=== PATIENT | male | born 1950 | race Hispanic/Latino ===

== ENCOUNTER → 2017-08-11 | Outpatient (CLI) | payer OTHER ==
[~2017-08-11] VITALS: Ht 170.2 cm; Wt 95.3 kg
[~2017-08-11] MED LIST: AMLO5TAB2 PO; ASPI-555 PO; ATOR20TA65 PO; ERGO2000 PO; GLIP1TAB5 PO; INSU100I13 SQ; INSU100I3 SQ; INSU100V3 SQ; INSU200I4 SQ; LORA-705 PO; METF10004 PO; METO50 PO; PIOG30TA70 PO; REGADENOSON 0.4 MG/5 ML PF SYG IVP SCH; VALS160T29 PO
== END | disposition home or self-care (01) ==
LOC: SHCH 09:16
PROVIDERS: ATTEND Internal Medicine Cardiovascular Disease
DX: I20.9 Angina pectoris, unspecified (principal)
CPT/HCPCS: 78452; 93017; 96374; A9500 ×2; J2785

== ENCOUNTER 2017-09-03 08:56 | Day surgery (SDC) | payer OTHER ==
[2017-09-01 14:43] VITALS: BP 139/61
[2017-09-01 15:11] LABS: CREATININE 1.1 mg/dL (0.5-1.5); POTASSIUM 4.3 mmol/L (3.5-5.1)
[2017-09-01 15:13] LABS: BASOPHILS % (AUTO) 0.6 % (0.0-5.0); HEMATOCRIT 38.5 % (42-54); LYMPHOCYTES % (AUTO) 31.8 % (21.0-51.0); MEAN CORPUSCULAR HEMOGLOBIN 31.5 pg (27.0-33.0); MEAN CORPUSCULAR HGB CONC 34.9 g/dL (32.0-36.0); MEAN CORPUSCULAR VOLUME 90.3 fL (79-99); MONOCYTES % (AUTO) 7.5 % (3.0-13.0); NEUTROPHILS % (AUTO) 57.1 % (40.0-77.0); PLATELET COUNT (AUTO) 209 K/uL (130-400); RED BLOOD CELL COUNT(AUTO) 4.27 MIL/uL (4.50-6.20); RED CELL DISTRIBUTION WIDTH 14.1 % (11.0-15.5); WHITE BLOOD COUNT (AUTO) 6.2 K/uL (4.8-10.8)
[2017-09-01 15:23] LABS: INR 0.98 (0.85-1.15); PARTIAL THROMBOPLASTIN TIME 25.5 SEC (26.3-35.5); PROTHROMBIN TIME 10.3 SEC (9.6-11.6)
[2017-09-01 15:41] LABS: APPEARANCE,URINE Clear (CLEAR); BILIRUBIN,URINE Negative (NEGATIVE); COLOR,URINE Yellow (YELLOW); GLUCOSE, URINE (UA) Negative (NEGATIVE); KETONES,URINE Negative (NEGATIVE); LEUKOCYTE ESTERASE ,URINE Negative (NEGATIVE); NITRATE,URINE Negative (NEGATIVE); OCCULT BLOOD,URINE Negative (NEGATIVE); PH,URINE 5.5 (5.0-8.0); PROTEIN,URINE Negative (NEGATIVE)
[~2017-09-03] VITALS: Ht 170.2 cm; Wt 97.5 kg
[2017-09-03] VITALS (19 sets, daily range): BP systolic 110–136; BP diastolic 49–76
[~2017-09-03 08:56] MED LIST changes: -GLIP1TAB5 PO; -INSU100I13 SQ; -INSU100V3 SQ; -LORA-705 PO; +PIOG30TA26 PO; -PIOG30TA70 PO; -REGADENOSON 0.4 MG/5 ML PF SYG IVP SCH; +SODIUM CHLORIDE 0.9% 1000ML 1,000 ML IV SCH; +VALS160T28 PO; -VALS160T29 PO
[2017-09-03] MEDS ORDERED: IOHEXOL 350 MG/ML 100ML INFUS..BTL IV ONE ×2 (11:29→12:11)
[2017-09-03] MEDS ORDERED: LIDOCAINE HCL-MPF 2% 5ML VIAL ONE (11:29)
[2017-09-03] MEDS ORDERED: IOHEXOL-350 50ML VIAL IV ONE (11:29)
[2017-09-03] MEDS ORDERED: HEPARIN SODIUM 1000UNIT/ML 10ML VIAL ONE (12:10)
[2017-09-03] MEDS ORDERED: SODIUM CHLORIDE 0.9% 1000ML 1,000 ML IV SCH (12:56)
[2017-09-03] MEDS ORDERED: DEXTROSE 50%-WATER 50 ML DISP.SYRIN IV PRN (13:00)
[2017-09-03] MEDS ORDERED: GLUCAGON 1MG KIT 1 MG ML IM PRN (13:00)
[2017-09-03] MEDS: INSULIN HUMULIN R 100 UNIT/ML 3ML SQ SCH ×2 (16:30→21:00)
[2017-09-03] MEDS ORDERED: ACETAMINOPHEN EXTRA STRENGTH 500 MG TABLET ONE (17:07)
== END 2017-09-03 23:30 | disposition home or self-care (01) ==
LOC: DAH 08:56 → 2AH 19:15 → DAH 23:30
PROVIDERS: ATTEND Internal Medicine Cardiovascular Disease
DX: I25.708 Atherosclerosis of coronary artery bypass graft(s), unspecified, with other forms of angina pectoris (principal); Z95.1 Presence of aortocoronary bypass graft; Z98.890 Other specified postprocedural states; E78.5 Hyperlipidemia, unspecified; E11.9 Type 2 diabetes mellitus without complications; I10 Essential (primary) hypertension; J30.9 Allergic rhinitis, unspecified; Z79.899 Other long term (current) drug therapy; Z79.84 Long term (current) use of oral hypoglycemic drugs; Z79.01 Long term (current) use of anticoagulants
CPT/HCPCS: 36415; 71045; 80048; 81003; 82948 ×5; 85025; 85610; 85730; 93005; 93459; A4606; C1769; C1894; J1644 ×2; J1815; J3490; J7070; Q9965 ×2; Q9967 ×3

== ENCOUNTER → 2020-09-20 | Outpatient (CLI) | payer MEDICARE ==
[~2020-09-20] MED LIST changes: +AMLO-257 PO; -AMLO5TAB2 PO; -ASPI-555 PO; +ASPI-556 PO; +METF-446 PO; -METF10004 PO; -PIOG30TA26 PO; +PIOG30TA70 PO; -SODIUM CHLORIDE 0.9% 1000ML 1,000 ML IV SCH; -VALS160T28 PO; +VALS160T29 PO
== END | disposition home or self-care (01) ==
LOC: SHCH 11:24
PROVIDERS: ATTEND Internal Medicine Cardiovascular Disease
DX: I73.9 Peripheral vascular disease, unspecified (principal)
CPT/HCPCS: 93925

== ENCOUNTER → 2021-11-12 | Outpatient (CLI) | payer MEDICARE | END | disposition home or self-care (01) | LOC: SLP 20:16 | PROVIDERS: ATTEND Internal Medicine Cardiovascular Disease | DX: G47.33 Obstructive sleep apnea (adult) (pediatric) (principal) | CPT/HCPCS: 95810 ==

== ENCOUNTER → 2021-11-16 | Outpatient (CLI) | payer MEDICARE | END | disposition home or self-care (01) | LOC: SLP 20:22 | PROVIDERS: ATTEND Internal Medicine Cardiovascular Disease | DX: G47.33 Obstructive sleep apnea (adult) (pediatric) (principal) | CPT/HCPCS: 95811 ==

== ENCOUNTER → 2024-05-26 | Outpatient (CLI) | payer MEDICARE ==
--- NOTE | 2024-05-27 10:59 | HMCIMG ---
CT TEMPORAL BONES WITHOUT CONTRAST INDICATION: Other specified disorders of external ear, unspecified; ear polyp? TECHNIQUE: 3D helical CT acquisition through the temporal bones was performed. CT was performed with one or more of the following dose reduction techniques: Automated exposure control, adjustment of the mA and/or kV according to patient size, or use of iterative reconstruction technique. COMPARISON: None available FINDINGS: RIGHT: Evaluation of the right temporal bone demonstrates normal appearance to the pinna and external auditory canal. Significant opacification of the right middle ear cavity, including extension to the right tympanic membrane, which is not well-visualized. All ossicles are visualized and normal in appearance. Evaluation of the inner ear structures demonstrates normal appearance to the bony labyrinth. Fluid throughout the right mastoid air cells. LEFT: Evaluation of the left temporal bone demonstrates normal appearance to the pinna and external auditory canal. The tympanic membrane is intact. Evaluation of the middle ear cavity demonstrates normal pneumatization. All ossicles are demonstrated and normal in their appearance. Evaluation of the inner ear structures demonstrates normal appearance to the bony labyrinth. The mastoid air cells demonstrate normal architecture without evidence of mucosal thickening or opacification. Nominal bilateral maxillary sinus and ethmoid sinus mucosal thickening. Mild calcific plaque is present along the tate of the cavernous segments of both internal carotid arteries. IMPRESSION: Acute right otitis media and acute right mastoiditis.
== END | disposition home or self-care (01) ==
LOC: RAH 14:37
PROVIDERS: ATTEND Otolaryngology Plastic Surgery within the Head & Neck
DX: H70.001 Acute mastoiditis without complications, right ear (principal); H66.91 Otitis media, unspecified, right ear; I65.23 Occlusion and stenosis of bilateral carotid arteries; H61.899 Other specified disorders of external ear, unspecified ear; J32.0 Chronic maxillary sinusitis; J32.2 Chronic ethmoidal sinusitis
CPT/HCPCS: 70480

== ENCOUNTER 2024-10-27 06:00 | Day surgery (SDC) | payer MEDICARE ==
[2024-10-25 11:30] LABS: IMMATURE GRANULOCYTE ABSOLUTE 0.04 K/uL (0-1); NUCLEATED RED BLOOD CELLS 0.0 % (0.0-0.19); PLATELET COUNT (AUTO) 196 K/uL (130-400); RED BLOOD CELL COUNT(AUTO) 4.47 MIL/uL (4.50-6.20); RED CELL DISTRIBUTION WIDTH 13.2 % (11.0-15.5); WHITE BLOOD COUNT (AUTO) 5.4 K/uL (4.8-10.8)
[2024-10-25 11:38] LABS: CREATININE 1.4 mg/dL (0.5-1.3); GLOMERULAR FILTR. RATE CALC 53.0 mL/min (>90); GLUCOSE,RANDOM 135.0 mg/dL (70-105); SODIUM SERUM 139.0 mmol/L (136-145); UREA NITROGEN, BLOOD 19.0 mg/dL (7-18)
[2024-10-25 11:41] LABS: APPEARANCE,URINE CLEAR (CLEAR); GLUCOSE, URINE (UA) >=1000 mg/dL (NEGATIVE); LEUKOCYTE ESTERASE ,URINE NEGATIVE Leu/uL (NEGATIVE); NITRATE,URINE NEGATIVE (NEGATIVE); OCCULT BLOOD,URINE NEGATIVE (NEGATIVE)
[2024-10-25 11:50] LABS: ADD UA MICROSCOPIC YES
[2024-10-25 11:56] LABS: INR 1.03 (0.85-1.15)
[2024-10-25 12:24] VITALS: BP 156/63; PULSE 72; RESP 16; TEMP 97.9
--- NOTE | 2024-10-25 14:19 | HMCIMG ---
EXAM: CR Chest, 1 View. CLINICAL HISTORY: PRE OP COMPARISON: None provided. FINDINGS: LUNGS: There is no mass, infiltrate, or acute pulmonary abnormality. PLEURAL SPACES: No pleural effusion or pneumothorax. MEDIASTINUM: The cardiomediastinal silhouette is within normal limits. Status post sternotomy. BONES: No aggressive appearing osseous lesion seen. IMPRESSION: No acute cardiopulmonary pathology is evident. /[place]
--- NOTE | 2024-10-26 06:31 | EKG ---
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
--- NOTE | 2024-10-26 08:40 | NUR ---
report reported creat level to dr mosley. ok to proceed
[2024-10-27] VITALS (8 sets, daily range): BP systolic 117–173; BP diastolic 55–68; PULSE 62–74; RESP 10–18; TEMP 97.2–97.6
[~2024-10-27] VITALS: Ht 167.6 cm; Wt 100.0 kg
[~2024-10-27 06:00] MED LIST changes: +CILO50TA2 PO; +DAPA10TA PO; -ERGO2000 PO; +FLUT15.845 NS; -INSU200I4 SQ; +INSU300I3 SQ; +ISOS30TA92 PO; +LEVO75CA6 PO; +LORA-997 PO; +LOSA25TA41 PO; -METF-446 PO; +METO-408 PO; -METO50 PO; -PIOG30TA70 PO; +RANO10005 PO; -VALS160T29 PO; +VITAMIN B12 PO
[2024-10-27] MEDS: 0.9%NACL 1000ML 1,000 ML IV SCH (06:38)
[2024-10-27] MEDS ORDERED: LIDOCAINE HCL 400MG/20ML VIAL ONE (07:09)
[2024-10-27] MEDS ORDERED: HEParin-NS 1,000 UNIT/500 ML 1,000 ML IV ONE (07:10)
[2024-10-27] MEDS ORDERED: VERAPAMIL HCL 2.5 MG/ML VIAL ONE (07:10)
[2024-10-27] MEDS ORDERED: IOHEXOL 350 MG/ML 100ML INFUS..BTL IV ONE (07:10)
[2024-10-27] MEDS ORDERED: NITROGLYCERIN 50MG VIAL ONE (07:11)
[2024-10-27] MEDS ORDERED: MIDAZOLAM HCL 1 MG/ML 2ML VIAL ONE (07:30)
[2024-10-27] MEDS ORDERED: HEParin-NS 1,000 UNIT/500 ML 500 ML IV ONE (08:28)
--- NOTE | 2024-10-27 09:21 | PRN ---
Cath Procedure Report CATH PROCEDURE REPORT CARDIAC CATHETERIZATION REPORT Date of Service: Oct 27, 2024 PROCEDURE: Left heart catheterization with selective right and left coronary angiography, bypass graft angiography Percutaneous intervention to the Right posterior descending artery after the anastomoses of the vein graft to placement of stent (gladis Natalbany 2.5 x 15 mm) Closure of right common femoral arteriotomy site with six Tristanian Perclose Conscious sedation PRIMARY MARBLE MASON: Hai Lopez MD LABORATORY COORDINATOR: America Mejia DO DESCRIPTION OF PROCEDURE: After informed consent was obtained, patient brought back to the clam bed laborer suite in fasting state. Time-out was performed. Conscious sedation was administered under my direct supervision by independent qualify clam bed laborer RN and there were no complications secondary to anesthesia. Right common femoral artery was accessed on 1st attempt using ultrasound and fluoroscopic guidance, with selective angiography of the left coronary artery achieved with a six Tristanian JL 4.0 catheter, selective angiography of the right coronary artery, vein graft to RCA, vein graft to OM1 with the JR4 diagnostic catheter. A six Tristanian IM catheter was used for selective angiography of the LALA graft. 70 units/kg of heparin was given via peripheral IV in preparation for intervention. A six Tristanian JR4 guide catheter was used to selectively engage the vein graft to the RPDA. An 014 x 300 cm run-through wire, percutaneous intervention was performed at the RPDA ostium after vein graft anastomotic site with predilatation 1st utilizing a Euphora 2.5 x 15 mm balloon, followed by noncompliant T4 2.5 x 12 mm balloon, finally with placement of gladis Natalbany 2.5 mm x 15 mm drug-eluting stent with the initial 90% stenosis resolved to 0% stenosis with LYNDSAY three flow and no complications. HEMODYNAMICS: Opening aortic pressure 1174/49 with a mean of 77 mm Hg. Left [id number] mm Hg. LVEDP14 mm Hg. No significant gradient on pullback across the aortic valve. CONTRAST: 110 ml FINDINGS: Left main: Distal left main 50% luminal narrowing Left anterior descending: Proximal LAD is small measuring less than 1.5 mm with an overall 80-90% luminal narrowing, diffusely diseased until the at the anastomotic site of the LALA graft. The 1st diagonal displays and ostial to proximal 80-90% stenosis. The distal LAD is very small measuring less than 1 mm caliber distal to the widely patent LALA anastomosis. Left circumflex: Proximal to mid 40% stenosis. The OM1 is 100% occluded at its takeoff, with patent vein graft throughout the anastomotic site with the distal OM1 measuring less than 2 mm caliber. The OM2 measures a proximally2 mm caliber and has mid 50% stenosis. Right coronary artery: Right-dominant coronary system. Ostial to proximal heavily calcified 80 90% luminal narrowing. Diffuse disease in the midportion followed by a 60-70% calcified stenosis after the takeoff of the marginal. Di stal to this is a widely patent vein graft to distal RCA, however 90% focal stenosis of the ostial RPDA after the anastomotic site with mild diffuse disease of the RPDA and PLB. SUMMARY: 90% stenosis of the ostial RPDA distal to the vein graft anastomotic site, status post percutaneous intervention with placement of stent (gladis Natalbany 2.5 x 15 mm) AMERICA MEJIA DO Oct 27, 2024 09:21
[2024-10-27] MEDS ORDERED: 0.9%NACL 1000ML 1,000 ML IV SCH (09:30)
== END 2024-10-27 11:35 | disposition home or self-care (01) ==
LOC: DAH 06:00
PROVIDERS: ATTEND Internal Medicine
DX: R94.39 Abnormal result of other cardiovascular function study (principal); I25.708 Atherosclerosis of coronary artery bypass graft(s), unspecified, with other forms of angina pectoris; E78.5 Hyperlipidemia, unspecified; I12.9 Hypertensive chronic kidney disease with stage 1 through stage 4 chronic kidney disease, or unspecified chronic kidney disease; N18.30 Chronic kidney disease, stage 3 unspecified; E11.22 Type 2 diabetes mellitus with diabetic chronic kidney disease; Z79.01 Long term (current) use of anticoagulants; Z79.4 Long term (current) use of insulin; Z79.82 Long term (current) use of aspirin; Z79.899 Other long term (current) drug therapy
CPT/HCPCS: 80048; 83880; 85025; 85610; 85730; 81001; 36415; 71045; 93005; 85347 ×2; 82948 ×2; 93459; 99156; 99157 ×4; C9604; C1769 ×2; C1887 ×2; C1894 ×2; C1725 ×3; C1874; C1760; J3010; J3490 ×2; J7030; J1644 ×3; J2250; Q9967; A4215; A4222; A4221; A4663; A4216; A4606; Q9965 ×2; A4223 ×3; 96360; 96361